=== PATIENT | male | born 1950 | race African-American/Black ===

== ENCOUNTER 2017-11-23 13:58 | Emergency (ER) | payer MEDICARE ==
[~2017-11-23] VITALS: Ht 175.3 cm; Wt 69.9 kg
[~2017-11-23 13:58] MED LIST: DILAUDID2 M1 PO; LISINOPRIL-HCT1 EAC2 PO; MAG-OX 400 TAB400 M1 PO
[2017-11-23 14:18] LABS: ABSOLUTE BASOPHILS 0.1 thou/uL (0.0-0.2); ABSOLUTE LYMPHOCYTES 1.7 thou/uL (0.8-5.3); ABSOLUTE MONOCYTES 0.3 thou/uL (0.0-1.2); ABSOLUTE NEUTROPHILS 4.1 thou/uL (1.6-8.1); EOSINOPHILS 0.1 %; HEMATOCRIT 42.1 % (42.0-52.0); HEMOGLOBIN 14.6 gm/dL (14.0-18.0); LYMPHOCYTES 27.4 %; MCH 33.7 pg (26.0-34.0); MCHC 34.6 g/dL (28.0-37.0); MCV 97.2 fL (80.0-100.0); MONOCYTES 4.3 %; MPV 8.6 fl. (7.2-11.1); NUCLEATED RBCS 0 /100WBC; PLATELET COUNT* 118 thou/uL (150-400); POLYS 67.2 %; RBC 4.32 mil/uL (4.50-6.00); RDW-CV 12.9 % (10.5-14.5); WBC 6.2 thou/uL (4.0-11.0)
[2017-11-23 14:29] LABS: ANION GAP 12 mmol/L (7-16); BUN 17 mg/dL (7-18); CALCIUM 9.6 mg/dL (8.5-10.1); CHLORIDE 102 mmol/L (98-107); CO2 21 mmol/L (21-32); CREATININE 1.1 mg/dL (0.6-1.3); GLUCOSE 192 mg/dL (70-99); SODIUM 135 mmol/L (136-145)
[2017-11-23 14:33] LABS: POTASSIUM 2.8 mmol/L (3.5-5.1)
[2017-11-23 14:39] LABS: ALBUMIN 3.6 g/dL (3.4-5.0); ALKALINE PHOSPHATASE 70 U/L (46-116); LIPASE 165 U/L (73-393); SGOT 81 U/L (15-37); SGPT 78 U/L (30-65); TOTAL BILIRUBIN 0.9 mg/dL (<0.1-1.0); TOTAL PROTEIN 8.8 g/dL (6.4-8.2); TROPONIN-I LEVEL <0.06 ng/mL (<0.06)
[2017-11-23] MEDS ORDERED: ULTRAM 50MG TAB50 MG PO (14:56)
[2017-11-23] MEDS ORDERED: POTASSIUM20 PO (14:56)
[2017-11-23 15:20] VITALS: BP 135/75
--- NOTE | 2017-11-24 12:44 | EKG ---
[place] [address] ELECTROCARDIOGRAM REPORT Name: CASSY GA [id number] Admission: 11/23/17 Attend Phys: Discharge: 11/23/17 Date of : 54 Report #: [id number] THIS REPORT FOR: //name// [facility] ED Test Date: 2017-11-23 Test Time: 14:20:06 Pat Name: CASSY GA Department: Room: Gender: M Quantitative Developer: : 1950 Requested By: Chucky Weston Order Number: [id number] MD: Eloy Ren Measurements Intervals [place] Rate: 56 P: 68 [place]: 163 QRS: 63 QRSD: 94 T: 26 QT: 462 QTc: 446 Interpretive Statements Sinus bradycardia Ventricular premature complex Nonspecific T abnormalities, anterior leads Compared to ECG 10/02/2009 00:54:56 Ventricular premature complex(es) now present T-wave abnormality now present Sinus bradycardia noted Prolonged QT interval no longer present Early repolarization no longer present Electronically Signed On 11-24-2017 12:44:39 CDT by Eloy Ren [email or web address] <ELECTRONICALLY SIGNED> By: Eloy Ren MD, [facility] 11/24/17 1244 1420 1420 Eloy Ren MD, [facility] /EPI
== END 2017-11-23 15:22 | disposition home or self-care (01) ==
LOC: M.ERS 13:58
PROVIDERS: Family Medicine
DX: R10.9 Unspecified abdominal pain (principal); E87.6 Hypokalemia; I10 Essential (primary) hypertension; Z90.49 Acquired absence of other specified parts of digestive tract

== ENCOUNTER 2020-09-22 07:18 | Emergency (ER) | payer OTHER ==
[~2020-09-22] VITALS: Ht 175.3 cm; Wt 73.9 kg
[~2020-09-22 07:18] MED LIST changes: +POTASSIUM20 PO; +ULTRAM 50MG TAB50 MG PO
[2020-09-22 08:04] LABS: ABSOLUTE LYMPHOCYTES 1.5 thou/uL (0.8-5.3); ABSOLUTE MONOCYTES 0.3 thou/uL (0.0-1.2); ABSOLUTE NEUTROPHILS 4.2 thou/uL (1.6-8.1); BASOPHILS 0.3 %; HEMATOCRIT 44.2 % (42.0-52.0); HEMOGLOBIN 15.3 gm/dL (14.0-18.0); LYMPHOCYTES 25.3 %; MCH 33.7 pg (26.0-34.0); MCHC 34.6 g/dL (28.0-37.0); MCV 97.3 fL (80.0-100.0); MONOCYTES 4.5 %; MPV 8.7 fl. (7.2-11.1); NUCLEATED RBCS 0 /100WBC; PLATELET COUNT* 114 thou/uL (150-400); POLYS 69.9 %; RBC 4.54 mil/uL (4.50-6.00); RDW-CV 13.5 % (10.5-14.5)
[2020-09-22 08:14] LABS: CALCIUM 9.7 mg/dL (8.5-10.1); CREATININE 0.8 mg/dL (0.6-1.3); TOTAL BILIRUBIN 1.3 mg/dL (<0.1-1.0); TOTAL PROTEIN 9.9 g/dL (6.4-8.2)
[2020-09-22] MEDS ORDERED: ZOFRAN ODT4 MG DISSOLVE (09:30)
[2020-09-22] MEDS ORDERED: FLAGYL500 M1 PO (09:30)
[2020-09-22] MEDS ORDERED: PERCOCET PO (09:30)
[2020-09-22] MEDS ORDERED: CIPROFLOXACIN500 M1 PO (09:30)
[2020-09-22] MEDS ORDERED: BENTYL 10 MG CA10 M1 PO (09:30)
[2020-09-22 09:35] VITALS: BP 179/96
--- NOTE | 2020-09-23 10:27 | EKG ---
[place] [address] ELECTROCARDIOGRAM REPORT Name: CASSY GA Room: [facility]#: [id number] Admission: 09/22/20 Attend Phys: Discharge: 09/22/20 Date of : 54 Date of Service: 09/22/20 0737 Report #: [id number] THIS REPORT FOR: //name// [facility] ED Test Date: 2020-09-22 Test Time: 07:37:37 Pat Name: CASSY GA Department: Room: Gender: Bobbin Trucker[place] : 1950 Requested By: Chucky Weston Order Number: [id number] MD: Eloy Ren Measurements Intervals [place] Rate: 62 P: 71 [place]: 151 QRS: 36 QRSD: 227 T: -64 QT: 489 QTc: 497 Interpretive Statements Sinus rhythm Probable left ventricular hypertrophy Abnrm T, consider ischemia, anterolateral lds Baseline wander in lead(s) II,III,aVF Compared to ECG 11/23/2017 14:20:06 Possible ischemia now present Sinus bradycardia no longer present Ventricular premature complex(es) no longer present Electronically Signed On 09-23-2020 10:27:31 CDT by Eloy Ren [email or web address] <ELECTRONICALLY SIGNED> By: Eloy Ren MD, [facility] 09/23/20 1027 0737 0737 Eloy Ren MD, [facility] /EPI
== END 2020-09-22 09:35 | disposition home or self-care (01) ==
LOC: M.ERS 07:18
PROVIDERS: Family Medicine
DX: K52.9 Noninfective gastroenteritis and colitis, unspecified (principal); R11.2 Nausea with vomiting, unspecified; I10 Essential (primary) hypertension; Z90.49 Acquired absence of other specified parts of digestive tract; Z79.899 Other long term (current) drug therapy